=== PATIENT | male | born 1965 | race American Indian/Alaskan Native ===

== ENCOUNTER 2019-10-08 21:08 | Observation (INO) | payer BC, OTHER ==
--- NOTE | 2019-10-08 21:59 | Emergency Department Report ---
HPI - General Chief Complaint: GI Bleed Time Seen by Provider: 10/08/19 21:44 - HPI HPI: Room 5 Patient is a 53-year-old male present with a chief complaint of rectal bleeding. The patient states he was at rest when he began "feeling full" in his abdomen. Patient had the urge to defecate and when he did he said there was blood mixed with stool. Patient denies rectal pain or abdominal pain with episode. Patient denies history of melena. Patient states he had episode of nausea vomiting and ambulance upon being transported by EMS but does not know the color of the vomitus. Patient denies fever or cough. Patient states he had a similar episod e years ago when he was diagnosed with "inflamed intestines." Patient currently is asymptomatic and without complaint ED Past Medical Hx - Past Medical History Previous Medical History?: Yes Additional medical history: diverticulitis - Surgical History Past Surgical History?: No - Family History Family history: no significant - Social History Smoking Status: Former Smoker (None x2-week) Substance Use Type: None (Denies illicit drug use), Alcohol (Occasional) - Medications Home Medications: Home Medications Medication Instructions Recorded Confirmed Last Taken Type No Known Home Medications [No 02/20/15 02/20/15 Unknown History Reported Home Medications] ED Review of Systems ROS: Stated complaint: BLOOD IN STOOL Other details as noted in HPI Constitutional: no symptoms reported Respiratory: no symptoms reported Endocrine: no symptoms reported Gastrointestinal: nausea, vomiting, hematochezia. denies: abdominal pain, melena Physical Exam - Physical Exam Physical Exam: GENERAL: The patient is well-developed well-nourished male lying on stretcher not appearing to be in acute distress. [] HEENT: Normocephalic. Atraumatic. Extraocular motions are intact. Patient has moist mucous membranes. NECK: Supple. Trachea midline CHEST/LUNGS: Clear to auscultation. There is no respiratory distress noted. HEART/CARDIOVASCULAR: Regular. There is no tachycardia. There is no gallop rub or murmur. ABDOMEN: Abdomen is soft, nontender. Patient has normal bowel sounds. There is no abdominal distention. SKIN: There is no rash. There is no edema. There is no diaphoresis. NEURO: The patient is awake, alert, and oriented. The patient is cooperative. The patient has normal speech MUSCULOSKELETAL: There is no evidence of acute injury. RECTAL: Deferred patient has gross dark red blood with clots present in his underwear ED Medical Decision Making - Lab Data Result diagrams: 10/08/19 23:03 10/08/19 23:03 Laboratory Tests 10/08/19 10/08/19 10/08/19 23:02 23:02 23:03 WBC 11.1 H RBC 3.46 L Hgb 9.0 L Hct 27.3 L MCV 79 L MCH 26 L MCHC 33 RDW 18.6 H Plt Count 274 Lymph % (Auto) 10.4 L [place] % (Auto) 4.9 Eos % (Auto) 0.1 Baso % (Auto) 0.3 Lymph # 1.2 [place] # 0.5 Eos # 0.0 Baso # 0.0 Seg Neutrophils % 84.3 H Seg Neutrophils # 9.3 H PT 13.9 INR 1.06 APTT 27.1 Sodium Potassium Chloride Carbon Dioxide Anion Gap BUN Creatinine Estimated GFR BUN/Creatinine Ratio Glucose Calcium Total Bilirubin AST ALT Alkaline Phosphatase Total Protein Albumin Albumin/Globulin Ratio Blood Type O NEGATIVE Antibody Screen Negative 10/08/19 23:03 WBC RBC Hgb Hct MCV MCH MCHC RDW Plt Count Lymph % (Auto) [place] % (Auto) Eos % (Auto) Baso % (Auto) Lymph # [place] # Eos # Baso # Seg Neutrophils % Seg Neutrophils # PT INR APTT Sodium 136 L Potassium 4.7 Chloride 104.3 Carbon Dioxide 22 Anion Gap 14 BUN 15 Creatinine 1.0 Estimated GFR > 60 BUN/Creatinine Ratio 15 Glucose 158 H Calcium 8.0 L Total Bilirubin 0.20 AST 18 ALT 9 Alkaline Phosphatase 56 Total Protein 5.8 L Albumin 3.1 L Albumin/Globulin Ratio 1.1 Blood Type Antibody Screen - Differential Diagnosis GI bleed Critical care attestation.: If time is entered above; I have spent that time in minutes in the direct care of this critically ill patient, excluding procedure time. ED Disposition Clinical Impression: GI bleed Disposition: DC-09 OP ADMIT IP TO THIS HOSP Is pt being admited?: Yes Does the pt Need Aspirin: No Condition: Fair Forms: Accompanied Note Time of Disposition: 00:50 (Hospitalist paged (Tracie))
[2019-10-08] MEDS ORDERED: SODIUM CHLORIDE 0.9% 1000 ML 1,000 ML IV ONE ×2 (22:06)
[2019-10-08] MEDS ORDERED: SODIUM CHLORIDE 0.9% 1000 ML 2,000 ML ONE (22:08)
[2019-10-08 23:40] LABS: Basophils % (Auto) 0.3 % (0.0-1.8); Eosinophils % (Auto) 0.1 % (0.0-4.3); Hematocrit 27.3 % (35.5-45.6); Lymphocytes # (Auto) 1.2 K/mm3 (1.2-5.4); Lymphocytes % (Auto) 10.4 % (13.4-35.0); Mean Corpuscular HGB Conc 33 % (32-34); Mean Corpuscular Volume 79 fl (84-94); Monocytes # (Auto) 0.5 K/mm3 (0.0-0.8); Monocytes % (Auto) 4.9 % (0.0-7.3); Platelet Count 274 K/mm3 (140-440); Red Blood Count 3.46 M/mm3 (3.65-5.03); Red Cell Distribution Width 18.6 % (13.2-15.2)
[2019-10-08 23:45] LABS: Alanine Aminotransferase 9 units/L (7-56); Albumin 3.1 g/dL (3.9-5); BUN/Creatinine Ratio 15; Blood Urea Nitrogen 15 mg/dL (9-20); Hemolysis Index 61
[2019-10-08 23:56] LABS: INR 1.06 (0.87-1.13); Partial Thromboplastin Time 27.1 Sec. (24.2-36.6)
[2019-10-09] MEDS ORDERED: ONDANSETRON 4 MG/2 ML INJ IV PRN (01:46)
[2019-10-09] MEDS ORDERED: ACETAMINOPHEN 325 MG TAB PO PRN (01:46)
[2019-10-09] MEDS ORDERED: MAGNESIUM HYDROXIDE (MOM) ORAL LIQD UDC PO PRN (01:46)
--- NOTE | 2019-10-09 01:57 | History and Physical Report ---
History of Present Illness Date of examination: 10/09/19 Date of admission: 10/09/2019 Chief complaint: Bloody stool History of present illness: 53-year-old -[place] male with known history of rectal bleeding. He also indicates that he has been having feeling of abdominal fullness. He has had stool mixed with kerry blood each time he defecates. He denies any fever or chills, no cough or shortness of breath. He has had some nausea and vomiting but denies any hematemesis. Patient denies any hematuria or dysuria. He denies any recent travel and no sick contacts. Patient indicates he had a similar episode few years ago and was diagnosed with inflamed intestine. He denies any use of nonsteroidal anti-inflammatory medication. Upon arrival in the emergency room blood pressure was slightly low and patient felt slightly dizzy. He was given IV fluid with significant improvement. Past History Past Medical History: No medical history Past Surgical History: No surgical history Social history: smoking (Quit tobacco use about 2 weeks ago), alcohol abuse (Drinks alcohol occasionally) Family history: no significant family history Medications and Allergies Allergies Allergy/AdvReac Type Severity Reaction Status Date / Time No Known Allergies Allergy Unverified 04/11/14 12:58 Home Medications Medication Instructions Recorded Confirmed Last Taken Type No Known Home Medications [No 02/20/15 02/20/15 Unknown History Reported Home Medications] Active Meds: Active Medications Acetaminophen (Tylenol) 650 mg PO Q4H PRN PRN Reason: Pain MILD(1-3)/Fever >100.5/LAST Sodium Chloride (Nacl 0.9% 1000 Ml) 1,000 mls @ 125 mls/hr IV DIRECT OMEGA Magnesium Hydroxide (Milk Of Magnesia) 30 ml PO Q4H PRN PRN Reason: Constipation Ondansetron HCl (Zofran) 4 mg IV Q8H PRN PRN Reason: Nausea And Vomiting Sodium Chloride (Sodium Chloride Flush Syringe 10 Ml) 10 ml IV BID OMEGA Sodium Chloride (Sodium Chloride Flush Syringe 10 Ml) 10 ml IV PRN PRN PRN Reason: LINE FLUSH Review of Systems Constitutional: no fever, no chills Ears, nose, mouth and throat: no nasal congestion, no sore throat Cardiovascular: no chest pain, no palpitations Respiratory: no cough, no shortness of breath Gastrointestinal: BRBPR, no abdominal pain, no nausea, no vomiting, no diarrhea, no hematemesis Genitourinary Male: no dysuria, no hematuria, no flank pain Musculoskeletal: no neck pain, no low back pain Integumentary: no rash, no pruritis Neurological: no headaches, no confusion Psychiatric: no anxiety, no depression Exam - Constitutional Vitals: Temp Pulse Resp BP Pulse Ox 97.6 F 87 14 116/73 95 10/08/19 22:05 10/09/19 01:00 10/09/19 01:00 10/09/19 01:00 10/09/19 01:00 General appearance: Present: no acute distress, well-nourished, obese - EENT Eyes: Present: PERRL, EOM intact ENT: hearing intact, clear oral mucosa, dentition normal - Neck Neck: Present: supple, normal ROM - Respiratory Respiratory effort: normal Respiratory: bilateral: CTA - Cardiovascular Heart Sounds: Present: S1 & S2. Absent: gallop, systolic murmur, diastolic murmur, rub - Extremities Extremities: no ischemia, pulses intact, pulses symmetrical, No edema, Full ROM Peripheral Pulses: within normal limits - Abdominal General gastrointestinal: Present: soft, non-tender, non-distended, normal bowel sounds. Absent: mass - Integumentary Integumentary: Present: clear, warm, dry - Musculoskeletal Musculoskeletal: strength equal bilaterally - Psychiatric Psychiatric: appropriate mood/affect, intact judgment & insight, memory intact, cooperative - Neurologic Neurologic: CNII-XII intact, moves all extremities Results - Labs CBC & Chem 7: 10/08/19 23:03 10/08/19 23:03 Labs: Abnormal lab results 10/08/19 10/08/19 Range/Units 23:03 23:03 WBC 11.1 H (4.5-11.0) K/mm3 RBC 3.46 L (3.65-5.03) M/mm3 Hgb 9.0 L (11.8-15.2) gm/dl Hct 27.3 L (35.5-45.6) % MCV 79 L (84-94) fl MCH 26 L (28-32) pg RDW 18.6 H (13.2-15.2) % Lymph % (Auto) 10.4 L (13.4-35.0) % Seg Neutrophils % 84.3 H (40.0-70.0) % Seg Neutrophils # 9.3 H (1.8-7.7) K/mm3 Sodium 136 L (137-145) mmol/L Glucose 158 H (75-100) mg/dL Calcium 8.0 L (8.4-10.2) mg/dL Total Protein 5.8 L (6.3-8.2) g/dL Albumin 3.1 L (3.9-5) g/dL Assessment and Plan - Patient Problems (1) Lower GI bleeding Current Visit: No Status: Acute Plan to address problem: Etiology is unclear however patient has been placed n.p.o. Will monitor CBC. Consult has been placed to executive account manager for evaluation and recommendation. (2) Symptomatic anemia Current Visit: No Status: Acute Plan to address problem: Possibly secondary to the GI bleed. (3) DVT prophylaxis Current Visit: No Status: Acute Plan to address problem: Patient placed on sequential compression device. (4) Full code status Current Visit: Yes Status: Acute
[2019-10-09] MEDS: SODIUM CHLORIDE 0.9% 1000 ML 1,000 ML IV SCH ×3 (05:31→22:25)
--- NOTE | 2019-10-09 12:23 | Event Note ---
Date: 10/09/19 53 year old male with rectal bleeding in the past, diverticulitis and an ex- smoker 1/2 ppd for 8 years presents with hematochezia. He declines a nicotine patch at this time and states he is quitting cold turkey. He states he has had a bleed like this before and underwent a colonoscopy with removal of polyps several years ago. This seems to have happened in 2014. GI consult appreciated, trend CBC and monitor for further bleeding (if bleeding, may consider evaluation with colonoscopy, bleeding scan, CT angio) and iron studies and B12 ordered to evaluate anemia. The RN reported arrhythmia but the patient is asymptomatic at this time with no cardiac history. Continue to monitor.
--- NOTE | 2019-10-09 15:03 | Consultation ---
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 He was in his usual state of good health until yesterday when he noted onset of hematochezia with bright red blood mixed with brown stool. This happened approximately twice yesterday, and once with only dark stool today. Because of that, he presented to the emergency room. He denies chest pain shortness of breath lightheadedness or dizziness. There is no abdominal pain, nausea, vomiting, or weight loss. His bowel movements usually occur 2-3 times a day without any change. Patient does take to 81 mg aspirins daily for a long time for prophylaxis empirically. Of note, patient had 2 episodes of hematochezia in 2014, in April and again in February. He underwent colonoscopies both time and was presumed to have diverticular bleed. Patient denies known history of anemia. However, he is unaware of whether or not he has a normal blood count. His hemoglobin in 2014 was 8.6 at last measure with no normal hemoglobin documented. Meds reviewed. Past History Past Medical History: No medical history Past Surgical History: No surgical history Social history: smoking (Quit tobacco use - 09/2019), alcohol abuse (Drinks alcohol occasionally) Family history: no significant family history Medications and Allergies Allergies Allergy/AdvReac Type Severity Reaction Status Date / Time No Known Allergies Allergy Unverified 04/11/14 12:58 Home Medications Medication Instructions Recorded Confirmed Last Taken Type No Known Home Medications [No 02/20/15 02/20/15 Unknown History Reported Home Medications] Active Meds: Active Medications Acetaminophen (Tylenol) 650 mg PO Q4H PRN PRN Reason: Pain MILD(1-3)/Fever >100.5/LAST Sodium Chloride (Nacl 0.9% 1000 Ml) 1,000 mls @ 125 mls/hr IV DIRECT OMEGA Last Admin: 10/09/19 13:57 Dose: 125 mls/hr Documented by: Magnesium Hydroxide (Milk Of Magnesia) 30 ml PO Q4H PRN PRN Reason: Constipation Ondansetron HCl (Zofran) 4 mg IV Q8H PRN PRN Reason: Nausea And Vomiting Sodium Chloride (Sodium Chloride Flush Syringe 10 Ml) 10 ml IV BID [facility] Last Admin: 10/09/19 13:57 Dose: 10 ml Documented by: Sodium Chloride (Sodium Chloride Flush Syringe 10 Ml) 10 ml IV PRN PRN PRN Reason: LINE FLUSH Review of Systems All systems: negative (as noted in HPI) Exam - Constitutional Vitals: Temp Pulse Resp BP Pulse Ox 98.4 F 20 L 20 126/80 95 10/09/19 11:55 10/09/19 11:55 10/09/19 11:55 10/09/19 11:55 10/09/19 11:55 General appearance: Present: no acute distress - EENT Eyes: Present: PERRL, EOM intact ENT: hearing intact - Respiratory Respiratory effort: normal Respiratory: bilateral: CTA - Cardiovascular Rhythm: regular Heart Sounds: Present: S1 & S2 - Extremities Extremities: No edema - Abdominal General gastrointestinal: Present: soft, non-tender - Rectal Rectal Exam: other (Normal, no masses. Light brownish stool with reddish tinge) Results - Labs CBC & Chem 7: 10/08/19 23:03 10/08/19 23:03 Labs: Abnormal lab results 10/08/19 10/08/19 10/09/19 Range/Units 23:03 23:03 12:32 WBC 11.1 H (4.5-11.0) K/mm3 RBC 3.46 L (3.65-5.03) M/mm3 Hgb 9.0 L (11.8-15.2) gm/dl Hct 27.3 L (35.5-45.6) % MCV 79 L (84-94) fl MCH 26 L (28-32) pg RDW 18.6 H (13.2-15.2) % Lymph % (Auto) 10.4 L (13.4-35.0) % Seg Neutrophils % 84.3 H (40.0-70.0) % Seg Neutrophils # 9.3 H (1.8-7.7) K/mm3 Sodium 136 L (137-145) mmol/L Glucose 158 H (75-100) mg/dL POC Glucose 112 H (70-105) Calcium 8.0 L (8.4-10.2) mg/dL Total Protein 5.8 L (6.3-8.2) g/dL Albumin 3.1 L (3.9-5) g/dL Assessment and Plan 1. Hematochezia -most likely diverticular bleed given prior history of same. He has not had any bleeding since 2014. He does not appear to be bleeding aggressively at present and may have stopped spontaneously. -Monitor for ongoing bleeding, and monitor H&H. -Transfuse if needed. -If has further bleeding, may consider evaluation with colonoscopy, bleeding scan, CT angios, etc. 2. Anemia -unclear if this is acute or chronic since we do not have any known normal blood counts. -Will check iron studies and B12 -Monitor H&H 3. Cardiac status -RN reports 18 beat run of arrhythmia. Patient has no cardiac history. Will await evaluation of this by hospitalist to ensure this is not a meaningful cardiac event.
[2019-10-10 04:43] LABS: Basophils % (Auto) 0.4 % (0.0-1.8); Eosinophils # (Auto) 0.1 K/mm3 (0.0-0.4); Hematocrit 24.6 % (35.5-45.6); Hemoglobin 8.1 gm/dl (11.8-15.2); Lymphocytes # (Auto) 2.4 K/mm3 (1.2-5.4); Lymphocytes % (Auto) 36.7 % (13.4-35.0); Mean Corpuscular HGB Conc 33 % (32-34); Mean Corpuscular Volume 79 fl (84-94); Monocytes # (Auto) 0.6 K/mm3 (0.0-0.8); Monocytes % (Auto) 8.8 % (0.0-7.3); Platelet Count 253 K/mm3 (140-440); Red Blood Count 3.13 M/mm3 (3.65-5.03); Red Cell Distribution Width 18.5 % (13.2-15.2)
[2019-10-10 04:48] LABS: INR 1.05 (0.87-1.13)
[2019-10-10 04:56] LABS: BUN/Creatinine Ratio 10; Blood Urea Nitrogen 9 mg/dL (9-20); Calcium 8.2 mg/dL (8.4-10.2); Hemolysis Index 2
[2019-10-10 05:15] VITALS: BP 137/93
[2019-10-10] MEDS: SODIUM CHLORIDE 0.9% 1000 ML 1,000 ML IV SCH (05:47)
--- NOTE | 2019-10-10 07:39 | Progress Note ---
Assessment and Plan - Patient Problems (1) Abdominal pain Current Visit: No Status: Acute Qualifiers: Abdominal location: generalized Qualified Code(s): R10.84 - Generalized abdominal pain (2) Lower GI bleeding Current Visit: No Status: Acute (3) Anemia Current Visit: No Status: Acute (4) DVT prophylaxis Current Visit: No Status: Acute Hospitalist Physical - Constitutional Vitals: Temp Pulse Resp BP Pulse Ox 97.3 F L 80 20 137/93 98 10/10/19 03:59 10/10/19 03:59 10/10/19 03:59 10/10/19 03:59 10/10/19 03:59 General appearance: Present: no acute distress Results - Labs CBC & Chem 7: 10/10/19 04:09 10/10/19 04:09 Labs: Laboratory Last Values WBC 6.5 K/mm3 (4.5-11.0) 10/10/19 04:09 RBC 3.13 M/mm3 (3.65-5.03) L 10/10/19 04:09 Hgb 8.1 gm/dl (11.8-15.2) L 10/10/19 04:09 Hct 24.6 % (35.5-45.6) L 10/10/19 04:09 MCV 79 fl (84-94) L 10/10/19 04:09 MCH 26 pg (28-32) L 10/10/19 04:09 MCHC 33 % (32-34) 10/10/19 04:09 RDW 18.5 % (13.2-15.2) H 10/10/19 04:09 Plt Count 253 K/mm3 (140-440) 10/10/19 04:09 Lymph % (Auto) 36.7 % (13.4-35.0) H 10/10/19 04:09 [place] % (Auto) 8.8 % (0.0-7.3) H 10/10/19 04:09 Eos % (Auto) 1.0 % (0.0-4.3) 10/10/19 04:09 Baso % (Auto) 0.4 % (0.0-1.8) 10/10/19 04:09 Lymph # 2.4 K/mm3 (1.2-5.4) 10/10/19 04:09 [place] # 0.6 K/mm3 (0.0-0.8) 10/10/19 04:09 Eos # 0.1 K/mm3 (0.0-0.4) 10/10/19 04:09 Baso # 0.0 K/mm3 (0.0-0.1) 10/10/19 04:09 Seg Neutrophils % 53.1 % (40.0-70.0) 10/10/19 04:09 Seg Neutrophils # 3.4 K/mm3 (1.8-7.7) 10/10/19 04:09 PT 13.8 Sec. (12.2-14.9) 10/10/19 04:09 INR 1.05 (0.87-1.13) 10/10/19 04:09 APTT 27.1 Sec. (24.2-36.6) 10/08/19 23:02 Sodium 137 mmol/L (137-145) 10/10/19 04:09 Potassium 4.1 mmol/L (3.6-5.0) 10/10/19 04:09 Chloride 103.0 mmol/L (98-107) 10/10/19 04:09 Carbon Dioxide 26 mmol/L (22-30) 10/10/19 04:09 Anion Gap 12 mmol/L 10/10/19 04:09 BUN 9 mg/dL (9-20) 10/10/19 04:09 Creatinine 0.9 mg/dL (0.8-1.3) 10/10/19 04:09 Estimated GFR > 60 ml/min 10/10/19 04:09 BUN/Creatinine Ratio 10 % 10/10/19 04:09 Glucose 127 mg/dL (75-100) H 10/10/19 04:09 POC Glucose 112 (70-105) H 10/09/19 12:32 Calcium 8.2 mg/dL (8.4-10.2) L 10/10/19 04:09 Total Bilirubin 0.20 mg/dL (0.1-1.2) 10/08/19 23:03 AST 18 units/L (5-40) 10/08/19 23:03 ALT 9 units/L (7-56) 10/08/19 23:03 Alkaline Phosphatase 56 units/L (35-129) 10/08/19 23:03 Total Protein 5.8 g/dL (6.3-8.2) L 10/08/19 23:03 Albumin 3.1 g/dL (3.9-5) L 10/08/19 23:03 Albumin/Globulin Ratio 1.1 % 10/08/19 23:03 Blood Type O NEGATIVE 10/08/19 23:02 Antibody Screen Negative 10/08/19 23:02 Lr/IV: Voiding Method Toilet IV Catheter Type [Left Peripheral IV Antecubital] IV Catheter Type [Right INT / Saline Lock Antecubital] Active Medications - Current Medications Current Medications: Generic Name Dose Route Start Last Admin Trade Name Freq PRN Reason Stop Dose Admin Acetaminophen 650 mg 10/09/19 01:46 Tylenol PO Q4H PRN Pain MILD(1-3)/Fever >100.5/LAST Magnesium Hydroxide 30 ml 10/09/19 01:46 Milk Of Magnesia PO Q4H PRN Constipation Ondansetron HCl 4 mg 10/09/19 01:46 Zofran IV Q8H PRN Nausea And Vomiting Sodium Chloride 10 ml 10/09/19 10:00 10/09/19 22:25 Sodium Chloride Flush Syringe 10 Ml IV 10 ml BID OMEGA Administration Sodium Chloride 10 ml 10/09/19 01:46 Sodium Chloride Flush Syringe 10 Ml IV PRN PRN LINE FLUSH
--- NOTE | 2019-10-10 12:21 | Discharge Summary ---
Providers - Providers Date of Admission: 10/09/19 04:16 Attending physician: SAFIA BRUNO 10/09/19 01:46 Consult to Physician [CONS] Routine Comment: Consulting Provider: MARIZOL URENA Physician Instructions: Reason For Exam: GI BLEED Primary care physician: [employer]ERIFFS OFFICER Hospitalization Condition: Good Hospital course: 53 year old male with rectal bleeding in the past, diverticulitis and an ex- smoker 1/2 ppd for 8 years presents with hematochezia. He has had stool mixed with kerry blood each time he defecates. Of note, patient had 2 episodes of h ematochezia in 2014, in April and again in February. He underwent colonoscopies both times and was presumed to have diverticular bleed. He states he had a colonoscopy with removal of polyps several years ago. He is to follow up with his PCP within 1-2 weeks of discharge and with GI. Disposition: TO HOME OR SELFCARE Time spent for discharge: 35 - Discharge Diagnoses (1) Abdominal pain Status: Resolved Qualifiers: Abdominal location: generalized Qualified Code(s): R10.84 - Generalized abdominal pain (2) Lower GI bleeding Status: Acute Comment: Admitted for hematochezia Has had episodes of hematocheiza in April and February 2015. He underwent colonoscopies both times and was presumed to have diverticular bleed. Encouraged high fiber diet. F/U with a field advisor outpatient. (3) Anemia Status: Chronic Comment: Encouraged PO Iron pill and increasing intake of iron rich foods and follow up with PCP. Core Measure Documentation - Palliative Care Palliative Care/ Comfort Measures: Not Applicable - Core Measures Any of the following diagnoses?: none Exam - Constitutional Vitals: Temp Pulse Resp BP Pulse Ox 97.3 F L 92 H 20 137/93 98 10/10/19 03:59 10/10/19 09:21 10/10/19 09:21 10/10/19 03:59 10/10/19 09:21 General appearance: Present: no acute distress - EENT Eyes: Present: PERRL, EOM intact ENT: hearing intact, clear oral mucosa - Neck Neck: Present: normal ROM - Respiratory Respiratory effort: normal Respiratory: bilateral: CTA - Cardiovascular Rhythm: regular Heart Sounds: Present: S1 & S2. Absent: systolic murmur, diastolic murmur - Extremities Extremities: no ischemia, pulses intact, pulses symmetrical, No edema, normal temperature, normal color, Full ROM - Abdominal General gastrointestinal: Present: soft, non-tender, non-distended, normal bowel sounds - Integumentary Integumentary: Present: clear, warm, dry - Musculoskeletal Musculoskeletal: strength equal bilaterally - Psychiatric Psychiatric: appropriate mood/affect, cooperative - Neurologic Neurologic: CNII-XII intact, no focal deficits, moves all extremities, gait normal - Allied Health Allied health notes reviewed: nursing Plan Activity: advance as tolerated Diet: regular, other (increase fiber and iron rich foods intake) Special Instructions: smoking cessation Additional Instructions: Please followup with PCP within 1-2 weeks of discharge. Follow up with GI as well. Please go to your nearest emergency room in case of an emergency or call your doctor if you experience any changes to your symptoms. Please increase your intake of iron rich foods and fiber. Follow up with: PRIMARY CAREMD [Primary Care Provider] - 3-5 Days MARIZOL URENA MD [Staff Physician] - 7 Days Forms: AMA Form, Accompanied Note Prescriptions: Polyethylene Glycol 3350 [Powderlax] 17 gm PO DAILY #15 [email or web address]
== END 2019-10-10 16:47 | disposition home or self-care (01) ==
LOC: ED 21:08 → 4A 10-09 04:16 → INTOOBSV 10-09 04:16
PROVIDERS: ADMIT Internal Medicine Geriatric Medicine; ATTEND Internal Medicine
DX: K92.1 Melena (principal); R10.84 Generalized abdominal pain; R11.2 Nausea with vomiting, unspecified; D64.9 Anemia, unspecified; Z87.891 Personal history of nicotine dependence
CPT/HCPCS: 36415; 80048; 80053; 82962; 85025; 85610; 85730; 86850; 86900; 86901; 96360; 96361; 99284; G0378; J7030

== ENCOUNTER 2019-10-16 03:28 | Observation (INO) | payer OTHER ==
[2019-10-16] MEDS ORDERED: LACTATED RINGERS 1,000 ML IV ONE (03:53)
--- NOTE | 2019-10-16 03:54 | Emergency Department Report ---
ED GI Bleed HPI - General Chief complaint: GI Bleed Stated complaint: WEAKNESS, GI BLEED Time Seen by Provider: 10/16/19 03:42 Source: patient, EMS (Verbal report received from emergency medical services. EMS documentation not available at time of chart dictation ), RN notes reviewed, old records reviewed Mode of arrival: Stretcher Limitations: Physical Limitation - History of Present Illness Initial comments: Patient is a 53-year-old gentleman. This patient presents to the ER today with a complaint of syncope, lower GI bleed, malaise, fatigue and weakness. The patient states he had a colonoscopy in 2016, which he believes was unremarkable. He was admitted to this hospital last week with a complaint of GI bleed. He was observed in the hospital for a few days, seen by gastroenterology, and felt to be suitable for discharge without invasive procedure. He reports that since being discharged, he is felt "all right", and this evening, he was defecating, lost consciousness, believes that he hit his head, and had some bright red blood per rectum. He denies physical pain at this time. No midline neck pain. No chest pain. Positive weakness. Positive malaise and fatigue. MD complaint: gross hematemesis, blood on toilet paper, blood streaked stool -: Sudden, days(s) Radiation: none Quality: painless Consistency: intermittent Improves with: none Worsens with: none Context: history of GI bleed Associated Symptoms: malaise, syncope. denies: abdominal pain, nausea, vomiting, epistaxis, fever/chills - Related Data Home Medications Medication Instructions Recorded Confirmed Last Taken No Known Home Medications [No 10/16/19 10/16/19 Unknown Reported Home Medications] Allergies Allergy/AdvReac Type Severity Reaction Status Date / Time No Known Allergies Allergy Unverified 04/11/14 12:58 ED Review of Systems ROS: Stated complaint: WEAKNESS, GI BLEED Other details as noted in HPI Constitutional: malaise, weakness Eyes: denies: eye discharge ENT: denies: epistaxis Respiratory: shortness of breath Cardiovascular: syncope. denies: chest pain Gastrointestinal: hematochezia. denies: nausea, vomiting, hematemesis, melena Genitourinary: denies: dysuria Musculoskeletal: myalgia Neurological: weakness Hematological/Lymphatic: denies: easy bleeding ED Past Medical Hx - Past Medical History Previous Medical History?: Yes Hx Hypertension: No Hx Heart Attack/AMI: No Hx Congestive Heart Failure: No Hx Diabetes: No Hx Liver Disease: No Hx Seizures: No Hx Asthma: No Hx COPD: No Additional medical history: diverticulitis - Surgical History Past Surgical History?: No - Social History Smoking Status: Former Smoker Substance Use Type: None - Medications Home Medications: Home Medications Medication Instructions Recorded Confirmed Last Taken Type No Known Home Medications [No 10/16/19 10/16/19 Unknown History Reported Home Medications] ED Physical Exam - General Limitations: Physical Limitation General appearance: alert, obese - Head Head exam: Present: atraumatic, normocephalic - Eye Eye exam: Present: normal appearance, EOMI, other (Bilateral conjunctiva are pale). Absent: nystagmus - ENT ENT exam: Present: normal exam, normal orophraynx, mucous membranes moist, normal external ear exam - Neck Neck exam: Present: normal inspection, full ROM. Absent: tenderness, meningismus - Respiratory Respiratory exam: Present: normal lung sounds bilaterally. Absent: respiratory distress - Cardiovascular Cardiovascular Exam: Present: regular rate, normal rhythm, normal heart sounds. Absent: bradycardia, tachycardia, irregular rhythm, systolic murmur, diastolic murmur, rubs, gallop - GI/Abdominal GI/Abdominal exam: Present: soft. Absent: distended, tenderness, guarding, rebound, rigid, pulsatile mass - Rectal Rectal exam: Present: normal inspection, normal rectal tone, heme (+) stool, bloody stool, other (Chaperoned by nurse Sarah Yeh). Absent: decreased rect al tone, heme (-) stool - Extremities Exam Extremities exam: Present: normal inspection, full ROM, other (2+ pulses noted in the bilateral upper and lower extremities. There is no palpable cord. negative Homans sign. Muscular compartments are soft. The pelvis is stable.). Absent: pedal edema, calf tenderness - Back Exam Back exam: Present: normal inspection, full ROM. Absent: tenderness, CVA tenderness (R), CVA tenderness (L), paraspinal tenderness, vertebral tenderness - Neurological Exam Neurological exam: Present: alert, other (No facial droop. Tongue midline. Extraocular movements intact bilaterally. Facial sensation intact to light touch in V1, V2, V3 distribution bilaterally. 5 and a 5 strength in 4 extremities. Sensation intact to light touch in 4 extremities.) - Psychiatric Psychiatric exam: Present: flat affect - Skin Skin exam: Present: warm, dry, intact, normal color. Absent: rash ED Course Vital Signs 10/16/19 03:42 Temperature 98 F Pulse Rate 85 Respiratory 16 Rate Blood Pressure 122/70 [Left] O2 Sat by Pulse 96 Oximetry - Consultations Consultation #1: 10/16/19 04:47 Discussed history, physical, pertinent laboratory studies with GI on-call, Dr. Polk, he will see the patient shortly, endorses that clear liquid diet is acceptable at this time ED Medical Decision Making - Lab Data Result diagrams: 10/16/19 03:56 10/16/19 03:56 Vital Signs 10/16/19 03:42 Temperature 98 F Pulse Rate 85 Respiratory 16 Rate Blood Pressure 122/70 [Left] O2 Sat by Pulse 96 Oximetry Lab Results 10/16/19 10/16/19 Range/Units 03:56 03:56 WBC 5.8 (4.5-11.0) K/mm3 RBC 2.60 L (3.65-5.03) M/mm3 Hgb 6.6 L (11.8-15.2) gm/dl Hct 20.6 L (35.5-45.6) % MCV 79 L (84-94) fl MCH 26 L (28-32) pg MCHC 32 (32-34) % RDW 17.8 H (13.2-15.2) % Plt Count 340 (140-440) K/mm3 Lymph % (Auto) 18.1 (13.4-35.0) % [place] % (Auto) 7.1 (0.0-7.3) % Eos % (Auto) 0.4 (0.0-4.3) % Baso % (Auto) 0.2 (0.0-1.8) % Lymph # 1.0 L (1.2-5.4) K/mm3 [place] # 0.4 (0.0-0.8) K/mm3 Eos # 0.0 (0.0-0.4) K/mm3 Baso # 0.0 (0.0-0.1) K/mm3 Seg Neutrophils % 74.2 H (40.0-70.0) % Seg Neutrophils # 4.3 (1.8-7.7) K/mm3 PT 14.0 (12.2-14.9) Sec. INR 1.06 (0.87-1.13) APTT 25.7 (24.2-36.6) Sec. - EKG Data -: EKG Interpreted by Me EKG shows normal: sinus rhythm Rate: normal - EKG Data 10/16/19 04:43 Sinus rhythm, 86 bpm, normal axis, normal intervals, unremarkable EKG, not a STEMI - Radiology Data Radiology results: report reviewed, image reviewed - Medical Decision Making Differential diagnosis, including but not limited to: Orthostasis, vagal event, closed head injury, lower GI bleed, angiodysplasia, diverticulosis, malignancy Assessment and plan: 53-year-old gentleman who currently has a hemoglobin, hematocrit 6.6/20, down from 9 over27 1 week ago, with pale conjunctiva, and symptomatic anemia, blood pressure is acceptable, GCS of 15, with episode of syncope. Transfuse 1 unit of packed red blood cells, start IV fluids, establish large- bore IV access, will discuss with gastroenterology, and admit to the medical service. Discussed plan of care with the patient who verbalized understanding, and who is amenable to this plan of care. We have placed a page to gastroenterology on-call, we are waiting for them to call back. The hospital physician, Dr. Reji Hodges will admit Noncontrast CT scan of the brain was negative for acute disease, patient states that he "fell out", and believes that he may have hit his head. Patient is clinically sober at this time. The cervical spine is cleared through nexus and grenadian c spine rule Critical Care Time: Yes Critical care time in (mins) excluding proc time.: 35 Critical care attestation.: If time is entered above; I have spent that time in minutes in the direct care of this critically ill patient, excluding procedure time. ED Disposition Clinical Impression: Symptomatic anemia, GI bleed, Syncope, Closed head injury Disposition: OP ADMIT IP TO THIS HOSP Is pt being admited?: Yes Does the pt Need Aspirin: No Condition: Serious Instructions: Syncope (ED) Referrals: PRIMARY CARE, [Primary Care Provider] - 3-5 Days Forms: Accompanied Note
[2019-10-16 04:24] LABS: Basophils % (Auto) 0.2 % (0.0-1.8); Eosinophils % (Auto) 0.4 % (0.0-4.3); Hematocrit 20.6 % (35.5-45.6); Hemoglobin 6.6 gm/dl (11.8-15.2); Lymphocytes % (Auto) 18.1 % (13.4-35.0); Mean Corpuscular HGB Conc 32 % (32-34); Mean Corpuscular Volume 79 fl (84-94); Monocytes # (Auto) 0.4 K/mm3 (0.0-0.8); Monocytes % (Auto) 7.1 % (0.0-7.3); Platelet Count 340 K/mm3 (140-440); Red Cell Distribution Width 17.8 % (13.2-15.2)
--- NOTE | 2019-10-16 04:31 | Cat Scan Report ---
CT head/brain wo con INDICATION / CLINICAL INFORMATION: syncope closed head injury. TECHNIQUE: All CT scans at this location are performed using CT dose reduction for ALARA by means of automated e xposure control. COMPARISON: None available. FINDINGS: Ventricle size is normal. No mass or mass effect is seen. There is no evidence of intracranial hemorr duane. No obvious area of infarction is identified. Visualized paranasal sinuses are clear. IMPRESSION: No acute findings Signer Name: Sudheer Mijares MD FACR Signed: 10/16/2019 4:27 AM Workstation Name: [id number]
[2019-10-16 04:33] LABS: INR 1.06 (0.87-1.13)
[2019-10-16 04:34] LABS: Partial Thromboplastin Time 25.7 Sec. (24.2-36.6)
[2019-10-16] MEDS ORDERED: SODIUM CHLORIDE 0.9% 500 ML 500 ML IV ONE (04:36)
[2019-10-16 04:45] LABS: Alanine Aminotransferase 10 units/L (7-56); Albumin 3.4 g/dL (3.9-5); BUN/Creatinine Ratio 10; Blood Urea Nitrogen 9 mg/dL (9-20); Calcium 8.1 mg/dL (8.4-10.2); Hemolysis Index 1
[2019-10-16] MEDS ORDERED: ACETAMINOPHEN 325 MG TAB PO PRN (05:43)
[2019-10-16] MEDS ORDERED: ONDANSETRON 4 MG/2 ML INJ IV PRN (05:43)
--- NOTE | 2019-10-16 05:52 | History and Physical Report ---
History of Present Illness Date of examination: 10/16/19 Date of admission: 10/16/19 04:49 Chief complaint: Rectal bleeding Syncope History of present illness: 53-year-old -[place] male with history of diverticulitis who presents to the emergency room today complaining of lower GI bleed and syncope. Patient was seen here about a week ago and had a complaint of GI bleed. He was observed for a few days and subsequently discharged home. He did not have any procedure done during that admission. Patient indicates that he had a colonoscopy in 2016 which he states was unremarkable. He was in the restroom today defecating and suddenly lost consciousness. He fell and states he probably hit his head. He noticed some bright red blood per rectum. He denies any hematemesis, no hematuria or dysuria. He denies any abdominal pain. Patient states he has been feeling weak and fatigued. He denies any headache, no fever or chills, no chest pain or shortness of breath. He denies use of over the counter non-steroidal medication anti inflammatory medication (NSAID). No history of peptic ulcer disease. Work-up in the emergency room today reveals a low hemoglobin of 6.6 and hematocrit of 20. His H&H during his recent admission was 9 and 27. Patient is being prepared for blood transfusion. CT scan of the head done today shows no acute findings. Past History Past Medical History: other (Diverticulitis) Past Surgical History: Other (Colonoscopy in 2016) Social history: smoking (Patient is a former smoker) Family history: no significant family history Medications and Allergies Allergies Allergy/AdvReac Type Severity Reaction Status Date / Time No Known Allergies Allergy Unverified 04/11/14 12:58 Home Medications Medication Instructions Recorded Confirmed Last Taken Type No Known Home Medications [No 10/16/19 10/16/19 Unknown History Reported Home Medications] Active Meds: Active Medications Acetaminophen (Tylenol) 650 mg PO Q4H PRN PRN Reason: Pain MILD(1-3)/Fever >100.5/LAST Sodium Chloride (Nacl 0.9% 1000 Ml) 1,000 mls @ 125 mls/hr IV DIRECT [facility] Ondansetron HCl (Zofran) 4 mg IV Q8H PRN PRN Reason: Nausea And Vomiting Sodium Chloride (Sodium Chloride Flush Syringe 10 Ml) 10 ml IV BID [place] Sodium Chloride (Sodium Chloride Flush Syringe 10 Ml) 10 ml IV PRN PRN PRN Reason: LINE FLUSH Review of Systems Constitutional: no fever, no chills Ears, nose, mouth and throat: no nasal congestion, no sore throat Cardiovascular: syncope, no chest pain, no palpitations Respiratory: no cough, no shortness of breath Gastrointestinal: no abdominal pain, no nausea, no vomiting, no diarrhea, no hematemesis, no BRBPR Genitourinary Male: no dysuria, no hematuria, no flank pain Musculoskeletal: no neck pain, no low back pain Integumentary: no rash, no pruritis Neurological: no headaches, no confusion Psychiatric: no anxiety, no depression Exam - Constitutional Vitals: Temp Pulse Resp BP Pulse Ox 98 F 74 12 107/71 100 10/16/19 03:42 10/16/19 05:00 10/16/19 05:00 10/16/19 05:00 10/16/19 05:00 General appearance: Present: no acute distress, well-nourished, obese - EENT Eyes: Present: PERRL, EOM intact. Absent: scleral icterus ENT: hearing intact, clear oral mucosa, dentition normal - Neck Neck: Present: supple, normal ROM - Respiratory Respiratory effort: normal Respiratory: bilateral: CTA - Cardiovascular Rhythm: regular Heart Sounds: Present: S1 & S2. Absent: gallop, systolic murmur, diastolic murmur, rub - Extremities Extremities: no ischemia, pulses intact, pulses symmetrical, No edema, Full ROM Peripheral Pulses: within normal limits - Abdominal General gastrointestinal: Present: soft, non-tender, non-distended, normal bowel sounds. Absent: mass - Integumentary Integumentary: Present: clear, warm, dry, pale. Absent: rash - Musculoskeletal Musculoskeletal: strength equal bilaterally - Psychiatric Psychiatric: appropriate mood/affect, intact judgment & insight, memory intact, cooperative - Neurologic Neurologic: CNII-XII intact, no focal deficits, moves all extremities Results - Labs CBC & Chem 7: 10/16/19 03:56 10/16/19 03:56 Labs: Abnormal lab results 10/16/19 10/16/19 10/16/19 Range/Units 03:56 03:56 03:56 RBC 2.60 L (3.65-5.03) M/mm3 Hgb 6.6 L (11.8-15.2) gm/dl Hct 20.6 L (35.5-45.6) % MCV 79 L (84-94) fl MCH 26 L (28-32) pg RDW 17.8 H (13.2-15.2) % Lymph # 1.0 L (1.2-5.4) K/mm3 Seg Neutrophils % 74.2 H (40.0-70.0) % Sodium 136 L (137-145) mmol/L Glucose 183 H (75-100) mg/dL Calcium 8.1 L (8.4-10.2) mg/dL Total Creatine Kinase 234 H (55-170) units/L Total Protein 5.9 L (6.3-8.2) g/dL Albumin 3.4 L (3.9-5) g/dL Assessment and Plan - Patient Problems (1) GI bleed Current Visit: Yes Status: Acute Plan to address problem: Patient admitted and will monitor for further GI bleed. We will place a consult to gastroenterology for further evaluation and recommendation. (2) Symptomatic anemia Current Visit: Yes Status: Acute Plan to address problem: Secondary to GI blood loss. Patient is being prepared for blood transfusion and will monitor CBC. (3) Syncope Current Visit: Yes Status: Acute Plan to address problem: Possibly secondary to the symptomatic anemia. Patient fell and probably hit his head. CT scan of the head done was unremarkable. (4) DVT prophylaxis Current Visit: No Status: Acute Plan to address problem: Patient placed on sequential compression device. (5) Full code status Current Visit: No Status: Acute
[2019-10-16] MEDS: SODIUM CHLORIDE 0.9% 1000 ML 1,000 ML IV SCH ×2 (06:28→17:17)
--- NOTE | 2019-10-16 10:20 | Gastroenterology Consultation ---
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 He was in his usual state of good health until yesterday when he noted onset of hematochezia with bright red blood mixed with black stool. Similar episode happened approximately 1 week ago, was felt to be diverticular bleed and patient was discharged without endoscopic evaluation is felt to most likely be diverticular bleed Patient reports she did not have any abdominal pain nausea vomiting just had strong urge to have bowel movement and then ran to the bathroom and had large bloody bowel movement. He reports having a total of 3 bowel movements he did have loss of consciousness and therefore he called EMS was brought into the ER he is found to be severely anemic. He is currently getting a unit of blood right now Of note, patient had 2 episodes of hematochezia in 2014, in April and again in February. He underwent colonoscopies both time and was presumed to have diverticular bleed. Obtained/updated/reviewed patient's current medications Past History Past Medical History: No medical history, other (Diverticulitis) Past Surgical History: Other (Colonoscopy in 2016) Social history: smoking (Patient is a former smoker) Family history: no significant family history Medications and Allergies Allergies Allergy/AdvReac Type Severity Reaction Status Date / Time No Known Allergies Allergy Unverified 04/11/14 12:58 Home Medications Medication Instructions Recorded Confirmed Last Taken Type No Known Home Medications [No 10/16/19 10/16/19 Unknown History Reported Home Medications] Active Meds: Active Medications Acetaminophen (Tylenol) 650 mg PO Q4H PRN PRN Reason: Pain MILD(1-3)/Fever >100.5/LAST Sodium Chloride (Nacl 0.9% 1000 Ml) 1,000 mls @ 125 mls/hr IV DIRECT [facility] Last Admin: 10/16/19 06:28 Dose: 125 mls/hr Documented by: Ondansetron HCl (Zofran) 4 mg IV Q8H PRN PRN Reason: Nausea And Vomiting Sodium Chloride (Sodium Chloride Flush Syringe 10 Ml) 10 ml IV BID [facility] Last Admin: 10/16/19 09:02 Dose: Not Given Documented by: Sodium Chloride (Sodium Chloride Flush Syringe 10 Ml) 10 ml IV PRN PRN PRN Reason: LINE FLUSH Last Admin: 10/16/19 06:28 Dose: 10 ml Documented by: Review of Systems - Review of Systems All systems: negative (10 Systems reviewed and negative except as mentioned above in the history of present illness) Exam - Constitutional Vital Signs: Temp Pulse Resp BP Pulse Ox 98.0 F 73 20 111/69 97 10/16/19 08:22 10/16/19 08:22 10/16/19 08:22 10/16/19 08:22 10/16/19 08:22 General appearance: no acute distress - EENT Eyes: EOM intact ENT: hearing intact - Neck Neck: supple - Respiratory Respiratory effort: normal - Cardiovascular Rhythm: regular - Gastrointestinal General gastrointestinal: Present: soft, non-tender - Integumentary Integumentary: Present: dry - Neurologic Neurological: alert and oriented x3 - Psychiatric Psychiatric: appropriate mood/affect - Labs CBC & Chem 7: 10/16/19 03:56 10/16/19 03:56 Lab Results: Laboratory Results - last 24 hr 10/16/19 10/16/19 10/16/19 03:56 03:56 03:56 WBC 5.8 RBC 2.60 L Hgb 6.6 L Hct 20.6 L MCV 79 L MCH 26 L MCHC 32 RDW 17.8 H Plt Count 340 Lymph % (Auto) 18.1 [place] % (Auto) 7.1 Eos % (Auto) 0.4 Baso % (Auto) 0.2 Lymph # 1.0 L [place] # 0.4 Eos # 0.0 Baso # 0.0 Seg Neutrophils % 74.2 H Seg Neutrophils # 4.3 PT 14.0 INR 1.06 APTT 25.7 Sodium 136 L Potassium 3.8 Chloride 101.4 Carbon Dioxide 26 Anion Gap 12 BUN 9 Creatinine 0.9 Estimated GFR > 60 BUN/Creatinine Ratio 10 Glucose 183 H Calcium 8.1 L Magnesium 1.70 Total Bilirubin 0.20 AST 16 ALT 10 Alkaline Phosphatase 57 Total Creatine Kinase Total Protein 5.9 L Albumin 3.4 L Albumin/Globulin Ratio 1.4 Blood Type Antibody Screen Crossmatch 10/16/19 10/16/19 03:56 04:00 WBC RBC Hgb Hct MCV MCH MCHC RDW Plt Count Lymph % (Auto) [place] % (Auto) Eos % (Auto) Baso % (Auto) Lymph # [place] # Eos # Baso # Seg Neutrophils % Seg Neutrophils # PT INR APTT Sodium Potassium Chloride Carbon Dioxide Anion Gap BUN Creatinine Estimated GFR BUN/Creatinine Ratio Glucose Calcium Magnesium Total Bilirubin AST ALT Alkaline Phosphatase Total Creatine Kinase 234 H Total Protein Albumin Albumin/Globulin Ratio Blood Type O NEGATIVE Antibody Screen Negative Crossmatch See Detail Assessment and Plan Patient with worsening severe anemia and recurrent GI bleed Patient had similar episode approximately 5 years ago with 2 colonoscopies which did not show a clear source, felt to possibly be diverticular in origin Given the recurrent bleeding and the severity of the anemia, prudent to pursue endoscopic evaluation therefore we will plan on EGD/colonoscopy tomorrow to evaluate for peptic ulcer disease; Dieulafoy lesions; AVMs; diverticular bleeding; malignancy; polyps; etc. In meantime continue clear liquid diet, GoLYTELY tonight and n.p.o. past midnight tonight - Patient Problems (1) GI bleed Current Visit: Yes Status: Acute (2) Symptomatic anemia Current Visit: Yes Status: Acute (3) Blood loss anemia Current Visit: No Status: Acute (4) Anemia Current Visit: No Status: Chronic
[2019-10-16] MEDS ORDERED: POLYETHYLENE GLYCOL/ELECT SOLN 4000 ML PO ONE (18:00)
[2019-10-17] MEDS ORDERED: LIDOCAINE MPF (2%) 20 MG/1 ML VIAL 5 ML ONE (07:30)
[2019-10-17] MEDS ORDERED: SODIUM CHLORIDE 0.9% 1000 ML 1,000 ML ONE (07:37)
--- NOTE | 2019-10-17 07:44 | Anesthesia Consultation ---
<CAMERON MILIAN - Last Filed: 10/17/19 07:41> Anesthesia Consult and Med Hx Date of service: 10/17/19 - Airway Anesthetic Teeth Evaluation: Good ROM Head & Neck: Adequate Mental/Hyoid Distance: Adequate Mallampati Class: Class III Intubation Access Assessment: Possibly Difficult - Pre-Operative Health Status ASA Pre-Surgery Classification: ASA3 Proposed Anesthetic Plan: MAC - Pulmonary Hx Smoking: Yes (quit 3 months ago, cigas and some cigarette use) Hx Asthma: No Hx Respiratory Symptoms: No SOB: No COPD: No Home Oxygen Therapy: No Hx Pneumonia: No Hx Sleep Apnea: No (denies ) - Cardiovascular System Hx Hypertension: No Hx Coronary Artery Disease: No Hx Heart Attack/AMI: No Hx Angina: No Hx Percutaneous Transluminal Coronary Angioplasty (PTCA): No Hx Cardia Arrhythmia: No Hx Pacemaker: No Hx Internal Defibrillator: No Hx Valvular Heart Disease: No Hx Heart Murmur: No Hx Peripheral Vascular Disease: No - Central Nervous System Hx Neuromuscular Disorder: No Hx Seizures: No CVA: No Hx Back Pain: No Hx Psychiatric Problems: No - Gastrointestinal Hx Ulcer: No Hx Gastroesophageal Reflux Disease: Yes (mild intermittent, no recent history however, no N/V) - Endocrine Hx Renal Disease: No Hx End Stage Renal Disease: No Hx Cirrhosis: No Hx Liver Disease: No Hx Insulin Dependent Diabetes: No Hx Non-Insulin Dependent Diabetes: No Hx Thyroid Disease: No Hx Hypothyroidism: No Hx Hyperthyroidism: No - Hematic Hx Anemia: Yes (received multiple blood products, hemodynamically stable) Hx Sickle Cell Disease: No - Other Systems Hx Alcohol Use: Yes (social) Hx Substance Use: No Hx Cancer: No Hx Obesity: Yes <JOHN SALAZAR - Last Filed: 10/17/19 08:01> Anesthesia Consult and Med Hx - Airway Anesthetic Teeth Evaluation: Good ROM Head & Neck: Adequate Mental/Hyoid Distance: Adequate Mallampati Class: Class III Intubation Access Assessment: Possibly Difficult - Pre-Operative Health Status ASA Pre-Surgery Classification: ASA3 Proposed Anesthetic Plan: MAC - Pulmonary Hx Smoking: Yes (quit 3 months ago, previously 1 PPD) - Cardiovascular System Hx Hypertension: No Hx Heart Attack/AMI: No - Central Nervous System CVA: No - Gastrointestinal Hx Gastroesophageal Reflux Disease: Yes - Endocrine Hx Renal Disease: No Hx Liver Disease: No Hx Non-Insulin Dependent Diabetes: No (denies; A1c 6.6 in 2015 in EMR) Hx Thyroid Disease: No - Hematic Hx Anemia: Yes (received 1 unit pRBCs, repeat H/H not yet drawn. Currently asymptomatic.) - Other Systems Hx Obesity: Yes (BMI 43) - Additional Comments Anesthesia Medical History Comments: No hx anesthetic complications. Presented with hematochezia and syncopal episode found to be anemic now scheduled for EGD/colonscopy. Had similar episode in the past which was presumed 2/2 diverticular bleed.
--- NOTE | 2019-10-17 07:44 | Anesthesia Day of Surgery ---
<CAMERON MILIAN - Last Filed: 10/17/19 07:44> Anesthesia Day of Surgery - Day of Surgery Patient Examined: Yes Patient H&P Reviewed: Yes Patient is NPO: Yes <JOHN SALAZAR - Last Filed: 10/17/19 08:01> Anesthesia Day of Surgery - Day of Surgery Patient Examined: Yes Patient H&P Reviewed: Yes Patient is NPO: Yes (bowel prep finished today 0300)
[2019-10-17] MEDS ORDERED: SODIUM CHLORIDE 0.9% 1000 ML 1,000 ML IV SCH (08:00)
[2019-10-17] MEDS ORDERED: propofoL 200 MG/20 ML VIAL IV ONE ×2 (08:36)
--- NOTE | 2019-10-17 08:41 | Event Note ---
Date: 10/16/19 Patient seen and examined Patient for colonoscopy in a.m. We will monitor hemoglobin and hematocrit
--- NOTE | 2019-10-17 09:02 | Operative Report ---
Operative Report Operative Report: DOS: 10/17/2019 SURGEON: Basil Polk MD EGD with biopsy REPORT PREOPERATIVE DIAGNOSIS and POSTOPERATIVE DIAGNOSIS: Abdominal pain, rectal bleeding ESTIMATED BLOOD LOSS: minimal DESCRIPTION OF PROCEDURE: A high-resolution EGD scope was passed through the oropharynx, esophagus, stomach, and second portion of duodenum. The scope was carefully withdrawn. Retroflexion was performed in the stomach. At the end of the procedure, the scope was cleaned using normal technique. Vital signs monitored continuously throughout. SEDATION: Provided by Anesthesiology Services. COMPLICATIONS: None. FINDINGS: * Normal second portion of the duodenum * Minimal duodenitis of the duodenal bulb with minimal erythema * Moderate atrophic appearing gastritis of the gastric antrum and body. Biopsies were taken to rule out H. Pylori infection. A total of 5 biopsies were taken, 2 from the antrum, 1 from the incisura, 2 from the body. * Z line regular at 41 cm from incisors * Remainder of exam was unremarkable RECOMMENDATIONS: f/u pathology results and proceed with colonoscopy
--- NOTE | 2019-10-17 09:17 | Operative Report ---
Operative Report Operative Report: DOS: 10/17/2019 SURGEON: Basil Polk MD COLONOSCOPY REPORT PREOPERATIVE AND POSTOPERATIVE DIAGNOSIS: GI bleed DESCRIPTION OF PROCEDURE: The colonoscope was passed to the cecum as identified by the ileocecal valve and appendiceal orifice. Scope was carefully withdrawn. Retroflexion was performed in the rectum. At the end of procedure, the scope was cleaned using normal technique. Vital signs monitored continuously throughout. Procedure was difficult due to quality of prep and redundant colon SEDATION: Provided by [facility]. Quality of the prep was fair COMPLICATIONS: None. ESTIMATED BLOOD LOSS: none FINDINGS: * Redundant colon * Mild amount of stool scattered throughout the colon mildly limiting views * Significant diverticulosis so small and medium size diverticula throughout the entire colon * Remainder of the exam was unremarkable * No blood seen * Unable to intubate the terminal ileum due to significant colonic redundancy and looping RECOMMENDATIONS: * Presentation is consistent with recurrent diverticular bleed. Unfortunately, since the patient has pancolonic diverticulosis unable to isolate where the bleeding came from. Therefore, recommend that if the patient comes in with rectal bleeding again to get a stat bleeding scan or CT angiography bleeding protocol scan in order to try to isolate where the bleeding is coming from. That way if interventional radiology can treat the lesion that would be one option versus surgical resection of the area of bleeding * From GI standpoint, repeat hemoglobin if stabilized status post transfusion given no more overt bleeding patient can be discharged home (Recognizing there is a small chance he will have recurrent bleeding; unfortunately, however, short of subtotal colectomy no other intervention is currently available to prevent bleeding)
--- NOTE | 2019-10-17 10:08 | Post Anesthesia Evaluation ---
- Post Anesthesia Evaluation Patient Participated: Yes Airway Patent: Yes Stable Respiratory Function: Yes Nausea/Vomiting: No Temp > 96.8F: Yes Pain Manageable: Yes Adequeate Hydration: Yes Anesthesia Complications: No
[2019-10-17 12:46] LABS: Basophils % (Auto) 0.2 % (0.0-1.8); Eosinophils % (Auto) 0.5 % (0.0-4.3); Hematocrit 22.1 % (35.5-45.6); Hemoglobin 7.1 gm/dl (11.8-15.2); Lymphocytes # (Auto) 1.4 K/mm3 (1.2-5.4); Lymphocytes % (Auto) 24.4 % (13.4-35.0); Mean Corpuscular HGB Conc 32 % (32-34); Mean Corpuscular Volume 81 fl (84-94); Monocytes # (Auto) 0.4 K/mm3 (0.0-0.8); Monocytes % (Auto) 6.9 % (0.0-7.3); Platelet Count 352 K/mm3 (140-440); Red Blood Count 2.71 M/mm3 (3.65-5.03); Red Cell Distribution Width 17.9 % (13.2-15.2)
[2019-10-17 12:54] LABS: INR 1.05 (0.87-1.13)
[2019-10-17 13:06] LABS: BUN/Creatinine Ratio 6; Blood Urea Nitrogen 5 mg/dL (9-20); Calcium 8.3 mg/dL (8.4-10.2); Hemolysis Index 1
[2019-10-17 13:07] LABS: Alanine Aminotransferase 11 units/L (7-56); Albumin 3.6 g/dL (3.9-5); BUN/Creatinine Ratio 6; Blood Urea Nitrogen 5 mg/dL (9-20); Calcium 8.5 mg/dL (8.4-10.2); Hemolysis Index 0
[2019-10-17 16:22] VITALS: BP 125/89
--- NOTE | 2019-10-17 16:27 | Discharge Summary ---
Providers - Providers Date of Admission: 10/16/19 04:49 Date of discharge: 10/17/19 Attending physician: JODI LATIF 10/16/19 03:53 Consult to Physician [CONS] Urgent Comment: Consulting Provider: MARIZOL URENA Physician Instructions: Reason For Exam: gi bleed Primary care physician: COMMUNICATIONS OPERATOR Hospitalization Condition: Serious Hospital course: 53-year-old -[place] male with history of diverticulitis who presents to the emergency room today complaining of lower GI bleed and syncope. Patient was seen here about a week ago and had a complaint of GI bleed. He was observed for a few days and subsequently discharged home. He did not have any procedure done during that admission. Patient indicates that he had a colonoscopy in 2016 which he states was unremarkable. He was in the restroom today defecating and suddenly lost consciousness. He fell and states he probably hit his head. He noticed some bright red blood per rectum. He denies any hematemesis, no hematuria or dysuria. He denies any abdominal pain. Patient states he has been feeling weak and fatigued. He denies any headache, no fever or chills, no chest pain or shortness of breath. He denies use of over the counter non-steroidal medication anti inflammatory medication (NSAID). No history of peptic ulcer disease. Work-up in the emergency room today reveals a low hemoglobin of 6.6 and hematocrit of 20. His H&H during his recent admission was 9 and 27. Patient is being prepared for blood transfusion. CT scan of the head done today shows no acute findings. (1) GI bleed Current Visit: Yes Status: Acute Plan to address problem: Patient admitted and will monitor for further GI bleed. We will place a consult to gastroenterology for further evaluation and recommendation. Colonoscopy FINDINGS: * Redundant colon * Mild amount of stool scattered throughout the colon mildly limiting views * Significant diverticulosis so small and medium size diverticula throughout the entire colon * Remainder of the exam was unremarkable * No blood seen * Unable to intubate the terminal ileum due to significant colonic redundancy and looping RECOMMENDATIONS: * Presentation is consistent with recurrent diverticular bleed. Unfortunately, since the patient has pancolonic diverticulosis unable to isolate where the bleeding came from. Therefore, recommend that if the patient comes in with rectal bleeding again to get a stat bleeding scan or CT angiography bleeding protocol scan in order to try to isolate where the bleeding is coming from. That way if interventional radiology can treat the lesion that would be one option versus surgical resection of the area of bleeding * From GI standpoint, repeat hemoglobin if stabilized status post transfusion given no more overt bleeding patient can be discharged home (Recognizing there is a small chance he will have recurrent bleeding; unfortunately, however, short of subtotal colectomy no other intervention is currently available to prevent bleeding) * D/c home on Ferrous Gluconate and protonix * F/o with Jam (2) Symptomatic anemia Current Visit: Yes Status: Acute Plan to address problem: Secondary to GI blood loss. Patient is being prepared for blood transfusion and will monitor CBC. Transfused one unit prbc (3) Syncope Current Visit: Yes Status: Acute Plan to address problem: Possibly secondary to the symptomatic anemia. Patient fell and probably hit his head. CT scan of the head done was unremarkable. (4) DVT prophylaxis Current Visit: No Status: Acute Plan to address problem: Patient placed on sequential compression device. (5) Full code status Current Visit: No Status: Acute Disposition: DC-01 TO HOME OR SELFCARE - Discharge Diagnoses (1) GI bleed Status: Acute (2) Symptomatic anemia Status: Acute (3) Syncope Status: Acute (4) DVT prophylaxis Status: Acute Core Measure Documentation - Palliative Care Palliative Care/ Comfort Measures: Not Applicable - Core Measures Any of the following diagnoses?: none Exam - Constitutional Vitals: Temp Pulse Resp BP Pulse Ox 98.7 F 72 20 125/89 96 10/17/19 15:18 10/17/19 15:18 10/17/19 15:18 10/17/19 15:18 10/17/19 15:18 General appearance: Present: no acute distress, well-nourished - EENT Eyes: Present: PERRL ENT: hearing intact, clear oral mucosa - Neck Neck: Present: supple, normal ROM - Respiratory Respiratory effort: normal Respiratory: bilateral: CTA - Cardiovascular Heart rate: 78 Rhythm: regular Heart Sounds: Present: S1 & S2. Absent: rub, click - Extremities Extremities: pulses symmetrical, No edema Peripheral Pulses: within normal limits - Abdominal General gastrointestinal: Present: soft, non-tender, non-distended, normal bowel sounds Male genitourinary: Present: normal - Integumentary Integumentary: Present: clear, warm, dry - Musculoskeletal Musculoskeletal: gait normal, strength equal bilaterally - Psychiatric Psychiatric: appropriate mood/affect, intact judgment & insight - Neurologic Neurologic: CNII-XII intact, moves all extremities Plan Activity: no restrictions Diet: advance as tolerated Follow up with: PRIMARY CARE, [Primary Care Provider] - 3-5 Days FABIANO MCMAHAN MD [Staff Physician] - 7 Days Forms: Accompanied Note
== END 2019-10-17 18:10 | disposition home or self-care (01) ==
LOC: ED 03:28 → 4A 04:49
PROVIDERS: ADMIT Internal Medicine Geriatric Medicine; ATTEND Internal Medicine
DX: K62.5 Hemorrhage of anus and rectum (principal); D64.9 Anemia, unspecified; R55 Syncope and collapse; S09.90XA Unspecified injury of head, initial encounter; Z87.891 Personal history of nicotine dependence; W18.09XA Striking against other object with subsequent fall, initial encounter; Y93.89 Activity, other specified; Y92.002 Bathroom of unspecified non-institutional (private) residence as the place of occurrence of the external cause
CPT/HCPCS: 36415; 36430; 43239; 70450; 80053; 82550; 83735; 85014; 85018; 85025; 85610; 85730; 86850; 86900; 86901; 86920; 88305; 88342; 93005; 96360; 99291; G0378; J2704; J7030; J7120; P9016; 80048; 96361